=== PATIENT | male | born 1980 | race Caucasian/White ===

== ENCOUNTER → 2018-08-26 11:49 | Outpatient (CLI) | payer OTHER, SELFPAY ==
--- NOTE | 2018-08-26 | DI.CT.S_ITS ---
PROCEDURE: CT LUMBAR SPINE WO CON INDICATIONS: Low back pain radiating into right groin and down leg TECHNIQUE: Noncontrast 3 mm thick sections acquired from the T12 level to the sacrum. Sagittal and coronal reformats were constructed. For radiation dose reduction, the following was used: automated exposure control. COMPARISON: None. FINDINGS: Image quality: Excellent. Bones: There is normal bony alignment. No acute vertebral body compression fractures. No suspicious lytic or blastic bony lesions. No pars defects. T11-T12: Mild loss of disc height and vacuum phenomenon. There is posterior disc bulge. Mild bilateral facet arthropathy. The central canal is patent. No foraminal stenosis. T12-L1: Moderate loss of disc height and vacuum phenomenon. There is circumferential disc bulge and large anterior disc osteophyte complex. Mild bilateral facet arthropathy. The central canal is patent. No foraminal stenosis. L1-L2: Mild loss of disc height. There is mild posterior disc bulge. Mild bilateral facet arthropathy and hypertrophy of ligamentum flavum. The central canal is patent. No foraminal stenosis. L2-L3: Preserved disc height. There is mild posterior disc bulge. Mild bilateral facet arthropathy and hypertrophy of ligamentum flavum. The central canal is mildly narrowed. No foraminal stenosis. L3-L4: Vxaw-fl-butgliqn loss of disc height. There is diffuse posterior disc bulge and disc osteophyte complex. Mild bilateral facet arthropathy and hypertrophy of ligamentum flavum. The central canal is moderately narrowed. Mild to moderate bilateral foraminal stenosis. L4-L5: Mild loss of disc height. There is diffuse posterior disc bulge. Mild bilateral facet arthropathy and hypertrophy of ligamentum flavum. The central canal is moderately narrowed. Mild to moderate bilateral foraminal stenosis. L5-S1: Preserved disc height. There is mild posterior disc bulge. The central canal is patent. No foraminal stenosis. Soft tissues: No retroperitoneal masses or hematomas. Visualized aorta is normal in caliber. IMPRESSION: 1. Multilevel degenerative disc disease and facet arthropathy as described. 2. Moderate central canal stenosis at L3-L4 and L4-L5. 3. [id number] foraminal stenosis at several levels as described. Dictated by: Wayne Yen M.D. on 08/26/2018 at 17:13 Approved by: Wayne Yen M.D. on 08/27/2018 at 9:06
== END ==
PROVIDERS: Visit Provider Orthopaedic Surgery
DX: M54.5 Low back pain (principal); M51.16 Intervertebral disc disorders with radiculopathy, lumbar region; M51.17 Intervertebral disc disorders with radiculopathy, lumbosacral region; M47.26 Other spondylosis with radiculopathy, lumbar region; M48.061 Spinal stenosis, lumbar region without neurogenic claudication
CPT/HCPCS: 72131

== ENCOUNTER → 2022-03-15 08:17 | Outpatient (CLI) | payer OTHER, SELFPAY ==
--- NOTE | 2022-03-15 08:19 | DI.RAD.S_ITS ---
PROCEDURE: XR RIBS RT MIN 3V W CXR 1V INDICATIONS: Right-sided rib pain TECHNIQUE: 2 views of the right ribs were acquired, along with a single view chest. COMPARISON: None. FINDINGS: Surgical changes and devices: Right-sided dual-chamber pacemaker Bones and chest wall: No fractures or dislocations. No suspicious bony lesions. Overlying soft tissues appear unremarkable. Lungs and pleura: No pleural effusions or pneumothorax. Lungs appear clear. Mediastinum: Mediastinal contours appear normal. Heart size is normal. IMPRESSION: Pacemaker without rib fracture or pneumothorax Approved by: Lior Badillo M.D. on 03/15/2022 at 10:41
== END ==
PROVIDERS: Referring Provider Nurse Practitioner Family; Visit Provider Nurse Practitioner Family
DX: R07.81 Pleurodynia (principal); Z95.0 Presence of cardiac pacemaker
CPT/HCPCS: 71101

== ENCOUNTER → 2022-07-04 17:31 | Outpatient (CLI) | payer OTHER, SELFPAY ==
--- NOTE | 2022-07-04 17:33 | DI.RAD.S_ITS ---
PROCEDURE: XR CHEST 2V INDICATIONS: persistent cough, upcoming pacemaker procedure TECHNIQUE: 2 views of the chest were acquired. COMPARISON: None. FINDINGS: Surgical changes and devices: Left pacemaker with right atrial and right ventricular leads. Lungs and pleura: Lungs are clear. No pleural effusions or pneumothorax. Mediastinum: Mediastinal contours are normal. Heart size is normal. Bones and chest wall: No suspicious bony abnormalities. Prior right 7th rib fracture. Soft tissues appear unremarkable. IMPRESSION: Left pacemaker with right atrial and right ventricular leads. No acute cardiopulmonary abnormality. Dictated by: Mann Onofre M.D. on 07/04/2022 at 17:51 Approved by: Mann Onofre M.D. on 07/04/2022 at 17:52
== END ==
PROVIDERS: PCP Nurse Practitioner Family; Referring Provider Student in an Organized Health Care Education/Training Program; Visit Provider Student in an Organized Health Care Education/Training Program
DX: R05.3 Chronic cough (principal); Z95.0 Presence of cardiac pacemaker
CPT/HCPCS: 71046

== ENCOUNTER 2023-06-26 11:08 | Emergency (ER) | payer OTHER, SELFPAY ==
[2023-06-26] VITALS (8 sets, daily range): BP systolic 132–158; BP diastolic 72–83; PULSE 74–96; RESP 20; TEMP 37.3–38; O2SAT 97–100; BMI 25.7
--- NOTE | 2023-06-26 11:31 | DI.CT.S_ITS ---
PROCEDURE: CT THORACIC SPINE WO CON INDICATIONS: GLF, MIDLINE PAIN TECHNIQUE: Noncontrast 3 mm thick sections acquired through the region of interest in the thoracic spine. Sagittal and coronal reformats were then constructed. For radiation dose reduction, the following was used: automated exposure control. COMPARISON: [facility], CT, CT CERVICAL SPINE WO CON, 06/26/2023, 11:34. FINDINGS: Image quality: There is streak artifact seen through the upper abdomen. Bones: No acute vertebral body compression fractures. No suspicious sclerotic or lytic bony lesions. Central spinal canal is of normal overall caliber. Mild dextroconvex scoliotic curvature is seen. No focal AP alignment abnormality is seen. Soft tissues: No paravertebral masses or hematomas. Visualized posteromedial lungs appear clear. Left-sided pacer leads are seen. IMPRESSION: Negative for acute fracture. Dictated by: Balwinder Neri M.D. on 06/26/2023 at 11:11 Approved by: aBlwinder Neri M.D. on 06/26/2023 at 11:12
--- NOTE | 2023-06-26 11:31 | DI.CT.S_ITS ---
PROCEDURE: CT CERVICAL SPINE WO CON INDICATIONS: GLF, MIDLINE PAIN TECHNIQUE: Noncontrast 3 mm thick sections acquired from the skull base to the T4 level. Sagittal and coronal reformats were then constructed. For radiation dose reduction, the following was used: automated exposure control, adjustment of mA and/or kV according to patient size. COMPARISON: [facility], CT, CT THORACIC SPINE WO CON, 06/26/2023, 11:34. FINDINGS: Image quality: This examination is somewhat limited by quantum mottle artifact. Bones: No fractures or dislocations. Visualized superior ribs are intact. Levoconvex cervical thoracic scoliotic curvature is seen. Soft tissues: Prevertebral soft tissues are normal in thickness. No paravertebral hematomas. No apical pneumothoraces. Left-sided pacer leads are partially seen. IMPRESSION: No cervical spine fracture is seen. Dictated by: Balwinder Neri M.D. on 06/26/2023 at 11:12 Approved by: Balwinder Neri M.D. on 06/26/2023 at 11:13
--- NOTE | 2023-06-26 11:31 | ED.NECK ---
HPI - Neck Pain/Injury General Chief Complaint: Neck Pain/Injury Stated Complaint: TINGLING HANDS/FEET, HERNIATED DISC IN NECK Time Seen by Provider: 06/26/23 11:15 Mode of arrival: Wheelchair History of Present Illness HPI Narrative: 42-year-old male presents from home by private vehicle for neck and thoracic pain with severe musculoskeletal back pain. 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 For the last week he is noticed burning in his shoulders as well as a low-grade fever, however he states his temperature has never gone over 100.0. Daughter at home recently sick with viral illness. He has been taking Motrin and Tylenol for pain without significant relief. He reports weakness when he tries to push his arms forward, however he states that this is because the pain is so severe. Yesterday he fell down several steps and injured his upper back and neck worse. Today the pain became unbearable and he decided to present for evaluation. Reports tingling in his hands and feet that has since improved Related Data Previous Rx's Medication Instructions Recorded azithromycin 250 mg tablet See Rx Instructions PO .COMPLEX #6 07/04/22 tabs dexamethasone 4 mg tablet 8 mg PO DAILY 5 days #10 tabs 06/26/23 methocarbamol 750 mg tablet 750 mg PO TID #60 tabs 06/26/23 tramadol 50 mg tablet 50 mg PO Q8H PRN pain #10 tabs 06/26/23 Allergies Allergy/AdvReac Type Severity Reaction Status Date / Time acetaminophen [From Vicodin] Allergy Verified 06/26/23 11:11 hydrocodone [From Vicodin] Allergy Verified 06/26/23 11:11 Review of Systems Review of Systems Narrative: CONSTITUTIONAL- Denies: fever, chills, fatigue HEENT- Denies: sore throat, nosebleed, vision changes RESPIRATORY- Denies: shortness of breath, cough, wheezing CARDIAC- Denies: chest pain, edema, orthopnea GI- Denies: abdominal pain, nausea, vomiting, constipation, diarrhea - Denies: frequency, dysuria, hematuria, flank pain MSK-reports: Neck pain, back pain, shoulder pain Denies: extremity pain, extremity swelling SKIN- Denies: rash, itching, burn, swelling NEUROLOGICAL- Reports: tingling (hands/feet - resolved) Denies: headache, numbness, weakness, dizziness PSYCHIATRIC- Denies: anxiety, depression, suicidal ideation, homicidal ideation Patient History Social History Smoking Status: Never smoker Smoking Status: Never smoker alcohol intake frequency: holidays/special occasions only Substance Use Type: does not use Exam Initial Vital Signs Initial Vital Signs: Vital Signs Temperature 100.4 F H 06/26/23 11:11 Pulse Rate 81 06/26/23 11:11 Respiratory Rate 20 06/26/23 11:11 Blood Pressure 158/81 H 06/26/23 11:11 Pulse Oximetry 100 06/26/23 11:11 Oxygen Delivery Method Room Air 06/26/23 11:11 Const: Awake, alert, no acute distress, nontoxic appearing Eyes: PERRL, EOMI, conjunctiva normal ENT: Atraumatic, dentition normal, mucous membranes moist Cardiac: regular rate, regular rhythm RESP: unlabored, clear bilaterally, no wheezing GI: Atraumatic, soft, nontender, nondistended, no rebound, no guarding MSK: Atraumatic, 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 Back diffusely tender to palpation Skin: Warm, Dry, intact, no rashes Neuro: AO x3, CN II-XII grossly intact, moves all extremities Psych: affect normal, mood normal, not suicidal, not homicidal Course Course Course Narrative: Nontoxic appearing patient presenting for back and neck pain. Patient has chronic issues, however these acutely worsened after falling down several stairs. Will order labs, viral panel, CK. Medications for pain ordered. Orders Ordered: Discontinued Medications Dexamethasone (Dexamethasone 10 Mg/Ml Vial) 10 mg IV NOW ONE Stop: 06/26/23 11:30 Last Admin: 06/26/23 11:55 Dose: 10 mg Documented By: RB Acetaminophen (Ofirmev) 1,000 mg in 100 mls @ 400 mls/hr IV NOW ONE Stop: 06/26/23 11:43 Last Infusion: 06/26/23 12:28 Dose: 0 mls/hr Documented By: Admin: 06/26/23 11:55 Dose: 400 mls/hr Documented By: RB Ketorolac Tromethamine (Ketorolac 30 Mg/Ml Vial) 15 mg IV NOW ONE Stop: 06/26/23 11:30 Last Admin: 06/26/23 11:55 Dose: 15 mg Documented By: RB Methocarbamol (Methocarbamol 500 Mg Tablet) 1,000 mg PO NOW ONE Stop: 06/26/23 11:30 Last Admin: 06/26/23 11:55 Dose: 1,000 mg Documented By: CARLOS Reevaluation(s) Reevaluation #1: Labs reviewed, no acute abnormalities. CTs negative for acute findings. Patient reports pain improved with medications provided in the emergency department. 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 Patient was counseled to take several days of rest and to follow up with the primary care doctor. 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 ED return precautions discussed at bedside. Patient expressed understanding of the plan and is in agreement at this time. All questions answered at the time of discharge. Vital Signs Vital signs: Vital Signs - 8 hr 06/26/23 11:11 06/26/23 11:26 06/26/23 11:30 Temperature 100.4 F H Pulse Rate 81 84 94 H Respiratory Rate 20 Blood Pressure 158/81 H Pulse Oximetry 100 99 98 Oxygen Delivery Method Room Air 06/26/23 11:31 06/26/23 11:31 06/26/23 11:48 Temperature Pulse Rate 96 H Respiratory Rate Blood Pressure 147/72 H 134/75 Pulse Oximetry 97 Oxygen Delivery Method 06/26/23 11:48 06/26/23 12:00 06/26/23 12:00 Temperature Pulse Rate 77 77 Respiratory Rate Blood Pressure 132/83 Pulse Oximetry 99 98 Oxygen Delivery Method 06/26/23 12:30 06/26/23 12:30 06/26/23 12:43 Temperature 99.2 F Pulse Rate 74 Respiratory Rate Blood Pressure 132/75 Pulse Oximetry 98 Oxygen Delivery Method MDM - Neck Pain/Injury Lab Data 06/26/23 11:35 06/26/23 11:35 Labs: Lab Results 06/26/23 06/26/23 06/26/23 Range/Units 11:35 11:35 11:35 WBC 8.2 (4.5-11.0) X10^3/uL RBC 4.16 L (4.5-5.9) X10^6/uL Hgb 13.2 L (13.5-17.5) g/dL Hct 38.8 L (41-53) % MCV 93.1 (80-100) fL MCH 31.8 (26-34) PG MCHC 34.1 (30-36) % RDW 12.6 (11.6-14.8) % Plt Count 191 (150-400) X10^3/uL Neut % (Auto) 92.1 H (50-75) % Lymph % (Auto) 2.4 L (25-40) % [place] % (Auto) 5.3 (3-14) % Eos % (Auto) 0.0 L (2-4) % Baso % (Auto) 0.2 (0-2) % Neut # (Auto) 7500 H (5023-8740) /uL Lymph # (Auto) 200 L (1690-5915) /uL [place] # (Auto) 400 (0-900) /uL Eos # (Auto) 0 (0-450) /uL Baso # (Auto) 0 (0-100) /uL Sodium 132 L (137-145) mmol/L Potassium 3.9 (3.4-5.1) mmol/L Chloride 100 (98-107) mmol/L Carbon Dioxide 26 (22-32) mmol/L BUN 10 (9-20) mg/dL Creatinine 0.81 (0.66-1.25) mg/dL Estimated GFR > 60 (>60) mL/min BUN/Creatinine Ratio 12.3 (6-22) Glucose 121 H (70-100) mg/dL Calcium 9.5 (8.4-10.2) mg/dL Total Bilirubin 0.8 (0.2-1.3) mg/dL AST 36 (17-59) IU/L ALT 23 (<50) IU/L Alkaline Phosphatase 80 (38-126) U/L Total Creatine Kinase 153 (55-170) U/L Total Protein 7.6 (6.3-8.2) g/dL Albumin 4.3 (3.5-5.0) g/dL Globulin 3.3 (1.7-4.1) g/dL Albumin/Globulin Ratio 1.3 (1.0-2.8) SARS-CoV-2 (PCR) (Negative) Influenza A (RT-PCR) (NEGATIVE) Influenza B (RT-PCR) (NEGATIVE) RSV (PCR) (Negative) 06/26/23 Range/Units 11:35 WBC (4.5-11.0) X10^3/uL RBC (4.5-5.9) X10^6/uL Hgb (13.5-17.5) g/dL Hct (41-53) % MCV (80-100) fL MCH (26-34) PG MCHC (30-36) % RDW (11.6-14.8) % Plt Count (150-400) X10^3/uL Neut % (Auto) (50-75) % Lymph % (Auto) (25-40) % Med[place] % (Auto) (3-14) % Eos % (Auto) (2-4) % Baso % (Auto) (0-2) % Neut # (Auto) (7447-4230) /uL Lymph # (Auto) (1240-3598) /uL Med[place] # (Auto) (0-900) /uL Eos # (Auto) (0-450) /uL Baso # (Auto) (0-100) /uL Sodium (137-145) mmol/L Potassium (3.4-5.1) mmol/L Chloride (98-107) mmol/L Carbon Dioxide (22-32) mmol/L BUN (9-20) mg/dL Creatinine (0.66-1.25) mg/dL Estimated GFR (>60) mL/min BUN/Creatinine Ratio (6-22) Glucose (70-100) mg/dL Calcium (8.4-10.2) mg/dL Total Bilirubin (0.2-1.3) mg/dL AST (17-59) IU/L ALT (<50) IU/L Alkaline Phosphatase (38-126) U/L Total Creatine Kinase (55-170) U/L Total Protein (6.3-8.2) g/dL Albumin (3.5-5.0) g/dL Globulin (1.7-4.1) g/dL Albumin/Globulin Ratio (1.0-2.8) SARS-CoV-2 (PCR) Negative (Negative) Influenza A (RT-PCR) Flu a negative (NEGATIVE) Influenza B (RT-PCR) Flu b negative (NEGATIVE) RSV (PCR) Negative (Negative) Discharge Plan Departure Patient Disposition: Home Clinical Impression: Strain of neck muscle Instructions: Neck Sprain, DI for Muscle Strain Prescriptions: New methocarbamol 750 mg tablet 750 mg PO TID Qty: 60 0RF dexamethasone 4 mg tablet 8 mg PO DAILY 5 Days Qty: 10 0RF tramadol 50 mg tablet 50 mg PO Q8H PRN (Reason: pain) Qty: 10 0RF No Action azithromycin 250 mg tablet See Rx Instructions PO .COMPLEX Qty: 6 0RF Rx Instructions: take 500 mg today (day 1), then 250 mg for 4 days (days 2-5) PO Referrals: Dorcas Massey ARNP [Primary Care Provider] - Stand Alone Forms: Patient Portal/API
[2023-06-26 11:45] LABS: Add Manual Diff / Slide Review NO; Basophils Absolute Auto 0 /uL (0-100); Basophils Percent Auto 0.2 % (0-2); Eosinophils Absolute Auto 0 /uL (0-450); Hematocrit 38.8 % (41-53); Hemoglobin 13.2 g/dL (13.5-17.5); Lymphocytes Absolute Auto 200 /uL (1100-4500); Lymphocytes Percent Auto 2.4 % (25-40); Mean Corpuscular HGB Conc 34.1 % (30-36); Mean Corpuscular Hemoglobin 31.8 PG (26-34); Mean Corpuscular Volume 93.1 fL (80-100); Monocytes Absolute Auto 400 /uL (0-900); Monocytes Percent Auto 5.3 % (3-14); Neutrophils Absolute Auto 7500 /uL (1500-7000); Neutrophils Percent Auto 92.1 % (50-75); Platelet Count 191 X10^3/uL (150-400); Red Blood Cell Count 4.16 X10^6/uL (4.5-5.9); Red Cell Distribution Width 12.6 % (11.6-14.8); White Blood Cell Count 8.2 X10^3/uL (4.5-11.0)
[2023-06-26] MEDS: DEXAMETHASONE 10 MG/ML VIAL IV (11:55)
[2023-06-26] MEDS: methocarbamoL 500 MG TABLET 1000 MG PO (11:55)
[2023-06-26] MEDS: KETOROLAC 30 MG/ML VIAL 15 MG IV (11:55)
[2023-06-26] MEDS: ACETAMINOPHEN IV 1,000 MG/100 ML VIAL 400 MG IV (11:55)
[2023-06-26 11:57] LABS: Creatine Kinase 153 U/L (55-170)
[2023-06-26 11:59] LABS: Alanine Aminotransferase 23 IU/L (<50); Albumin 4.3 g/dL (3.5-5.0); Albumin Globulin Ratio 1.3 (1.0-2.8); Alkaline Phosphatase 80 U/L (38-126); Aspartate Aminotransferase 36 IU/L (17-59); BUN Creatinine Ratio 12.3 (6-22); Bilirubin Total 0.8 mg/dL (0.2-1.3); Blood Urea Nitrogen 10 mg/dL (9-20); Calcium 9.5 mg/dL (8.4-10.2); Carbon Dioxide 26 mmol/L (22-32); Chloride 100 mmol/L (98-107); Estimated Glomerular Filt Rate > 60 mL/min (>60); Globulin 3.3 g/dL (1.7-4.1); Glucose 121 mg/dL (70-100); HEMOLYSIS < 15 (0-50); Potassium 3.9 mmol/L (3.4-5.1); Sodium 132 mmol/L (137-145); Total Protein 7.6 g/dL (6.3-8.2)
--- NOTE | 2023-06-26 12:28 | PC.NURSE ---
Pt informed me that he recalls falling head first down 6 stairs approx [address] Prieto made aware
[2023-06-26 12:31] LABS: Influenza A - CEPHEID Flu A NEGATIVE (NEGATIVE); Influenza B - CEPHEID Flu B NEGATIVE (NEGATIVE); Respiratory Syncytial Virus Negative (Negative)
[2023-06-26 12:38] LABS: COVID-19 CEPHEID 4-PLEX PCR Negative (Negative)
== END 2023-06-26 13:30 | disposition home or self-care (01) ==
PROVIDERS: Emergency Provider Emergency Medicine; PCP Nurse Practitioner Family
DX: S16.1XXA Strain of muscle, fascia and tendon at neck level, initial encounter (principal); M54.6 Pain in thoracic spine; R50.9 Fever, unspecified; X58.XXXA Exposure to other specified factors, initial encounter; Z20.822 Contact with and (suspected) exposure to COVID-19; Y99.0 Civilian activity done for income or pay
CPT/HCPCS: 0241U; 36415; 72125; 72128; 80053; 82550; 85025; 96365; 96375; 99284; J0131; J1100; J1885

== ENCOUNTER 2023-06-29 00:33 | Emergency (ER) | payer OTHER, SELFPAY ==
[2023-06-29 00:42] VITALS: BP 133/83; PULSE 60; RESP 24; TEMP 37; O2SAT 100; BMI 25.7
[2023-06-29] MEDS: diazePAM 5 MG TABLET PO (02:26)
[2023-06-29] MEDS: KETOROLAC 30 MG/ML VIAL IM (02:26)
--- NOTE | 2023-06-29 03:07 | ED_ITS ---
HPI - Extremity Injury (Upper) General Chief Complaint: Extremity Injury, Upper Stated Complaint: LT Shoulder Pain was seen Thursday Time Seen by Provider: 06/29/23 01:26 Source: patient Mode of arrival: Ambulatory History of Present Illness HPI narrative: Patient 42-year-old male who presents with severe right shoulder pain and spasm. He reports had some burning in his shoulders last week. He has a physically demanding job he is had issues with his shoulders and rotator cuff for some time. Seen and evaluated here in the ED on 06/26/2023. The time he is reporting low-grade fever as well. He had workup including CT scan of the cervical spine and blood work ultimately discharged home with muscle spasm. He was given methocarbamol dexamethasone and tramadol. He reports that nothing is working he is having severe pain can not sleep at night. He previously had Vicodin for something else which usually makes him have a reaction an itch but he said he took it without reaction it did not help with his. He is currently pacing and appears quite uncomfortable Related Data Previous Rx's Medication Instructions Recorded azithromycin 250 mg tablet See Rx Instructions PO .COMPLEX #6 07/04/22 tabs dexamethasone 4 mg tablet 8 mg PO DAILY 5 days #10 tabs 06/26/23 methocarbamol 750 mg tablet 750 mg PO TID #60 tabs 06/26/23 tramadol 50 mg tablet 50 mg PO Q8H PRN pain #10 tabs 06/26/23 diazepam 5 mg tablet (Valium) 5 mg PO Q12HR PRN muscle spasm #10 06/29/23 tabs Allergies Allergy/AdvReac Type Severity Reaction Status Date / Time acetaminophen [From Vicodin] Allergy Verified 06/26/23 11:11 hydrocodone [From Vicodin] Allergy Verified 06/26/23 11:11 Review of Systems Review of Systems ROS Unobtainable: All systems reviewed & are unremarkable except as noted in HPI and below Patient History Social History Smoking Status: Never smoker Smoking Status: Never smoker alcohol intake frequency: holidays/special occasions only Substance Use Type: does not use Exam Initial Vital Signs Initial Vital Signs: Vital Signs Temperature 98.6 F 06/29/23 00:42 Pulse Rate 60 06/29/23 00:42 Respiratory Rate 24 06/29/23 00:42 Blood Pressure 133/83 10/02/23 00:42 Pulse Oximetry 100 06/29/23 00:42 Oxygen Delivery Method Room Air 06/29/23 00:42 GENERAL: Well-appearing, well-nourished and in no acute distress. CARDIOVASCULAR: peripheral pulses in tact, cap refill <2 sec RESPIRATORY: No respiratory distress, speaks in full sentences without difficulty EXTREMITIES: Normal range of motion, no clubbing or edema. Neurovascularly intact Left shoulder by scapula and rotator cuff pinpoint tenderness in 1 specific area not a muscle spasm. Able to abduct although limited flex extend. NEUROLOGICAL: Cranial nerves II through XII grossly intact. Normal gait and speech. SKIN: Warm, dry, no petechiae, no rashes or lesions. Course Orders Ordered: Discontinued Medications Diazepam (Diazepam 5 Mg Tablet) 5 mg PO NOW ONE Stop: 06/29/23 02:23 Last Admin: 06/29/23 02:26 Dose: 5 mg Documented By: TESS Ketorolac Tromethamine (Ketorolac 30 Mg/Ml Vial) 30 mg IM NOW ONE Stop: 06/29/23 02:23 Last Admin: 06/29/23 02:26 Dose: 30 mg Documented By: TESS Vital Signs Vital signs: Vital Signs - 8 hr 06/29/23 00:42 06/29/23 03:29 Temperature 98.6 F Pulse Rate 60 62 Respiratory Rate 24 16 Blood Pressure 133/83 127/84 Pulse Oximetry 100 99 Oxygen Delivery Method Room Air Room Air MDM - Extremity Injury (Upper) MDM Narrative Medical decision making narrative: Patient 48-year-old male presents today with left shoulder pain.? He has numbness tingling and spasm.? Decreased range of motion.? He did very well with Toradol and Valium pain completely resolved he was able to lay down and go to sleep for a little bit.? He had full workup recently chart has been reviewed.? At this time sitting need for any imaging.? I do recommend outpatient physical therapy and MRI.? Discharge Plan Departure Patient Disposition: Home Clinical Impression: Shoulder sprain Instructions: DI for Shoulder Sprain Activity Restrictions/Additional Instructions: *You have been diagnosed with shoulder sprain *What to do: Increase activity as tolerated he may require outpatient MRI if pain worsens. May also benefit from physical therapy *Continue to take medications as directed Ibuprofen 600 mg every 6 hours if needed for bvhr-ea-nslkjaco pain Valium 5 mg every 12 hours if needed for muscle spasm this does cause drowsiness Tylenol 1000 mg every 6 hours if needed for vbyh-yk-byejxeqk pain *Follow up with your primary care provider in 2-3 days or call [phone] *Return to ER if you should have increasing pain numbness tingling weakness or any new, worsening or concerning symptoms CONTROLLED SUBSTANCE DISCHARGE (Narcotoic/benzodiazepine/Flexeril/Phenergan) 1. You have been prescribed narcotic medications, it does have acet aminophen/Tylenol/paracetamol in it, DO NOT TAKE MORE THAN 4,00mg in 24 hours of Tylenol. TRAMADOL DOES NOT CONTAIN TYLENOL 2. Please understand that we cannot provide further refills of narcotics, benzodiazepines or controlled substances through the ED and her pain management will need to be through your provider. 3. While on these medications you cannot drive or operate heavy machinery. 4. You cannot sign legal documents or perform any duties such as this. 5. As long as you're taking opiate pain medications he should also be taking a stool softener such as Colace, Dulcolax, MiraLAX or prune juice, to help avoid constipation. Prescriptions: New diazepam [Valium] 5 mg tablet 5 mg PO Q12HR PRN (Reason: muscle spasm) Qty: 10 0RF No Action azithromycin 250 mg tablet See Rx Instructions PO .COMPLEX Qty: 6 0RF Rx Instructions: take 500 mg today (day 1), then 250 mg for 4 days (days 2-5) PO methocarbamol 750 mg tablet 750 mg PO TID Qty: 60 0RF dexamethasone 4 mg tablet 8 mg PO DAILY 5 Days Qty: 10 0RF tramadol 50 mg tablet 50 mg PO Q8H PRN (Reason: pain) Qty: 10 0RF Referrals: Dorcas Massey ARNP [Primary Care Provider] - Stand Alone Forms: Patient Portal/API
[2023-06-29 03:29] VITALS: BP 127/84; PULSE 62; RESP 16; O2SAT 99
== END 2023-06-29 03:30 | disposition home or self-care (01) ==
PROVIDERS: Emergency Provider Emergency Medicine; PCP Nurse Practitioner Family
DX: S43.401A Unspecified sprain of right shoulder joint, initial encounter (principal); X58.XXXA Exposure to other specified factors, initial encounter; Y99.0 Civilian activity done for income or pay
CPT/HCPCS: J1885

== ENCOUNTER 2023-06-29 14:20 | Emergency (ER) | payer OTHER, SELFPAY ==
[2023-06-29 14:23] VITALS: BP 164/90; PULSE 68; RESP 22; TEMP 36.8; O2SAT 100; BMI 25.7
--- NOTE | 2023-06-29 14:44 | DI.RAD.S_ITS ---
PROCEDURE: XR SHOULDER LT MIN 2V INDICATIONS: Pain after fall TECHNIQUE: 3 views of the shoulder were acquired. COMPARISON: None. FINDINGS: Bones: No fractures or dislocations. No suspicious bony lesions. Visualized ribs appear intact. Soft tissues: No suspicious soft tissue calcifications. Left chest wall pacemaker is partially visualized. IMPRESSION: No acute fracture or dislocation. Dictated by: Gabe Joy M.D. on 06/29/2023 at 16:15 Approved by: Gabe Joy M.D. on 06/29/2023 at 16:16
--- NOTE | 2023-06-29 14:45 | ED_ITS ---
HPI - Extremity Problem General Chief complaint: Extremity Problem,Nontraumatic Stated complaint: shoulder pain here 3x since thursday Time Seen by Provider: 06/29/23 14:39 Source: patient Mode of arrival: Ambulatory History of Present Illness HPI Narrative: Patient is a 42-year-old male who is here for evaluation of left shoulder pain. Originally had an injury approximately 1 week ago where he fell. He waited until last Thursday to come to the emergency department where he had a workup. Include a CT scan of his neck that was unremarkable. He came back again approximately 12 hours ago with increasing pain. He was given Valium and T oradol. According to the note this essentially resolved all of his symptoms. He was given a prescription for the Valium. He stated that he was unable to get the prescription picked up because it was not going to be available until after 1800 hours. He denies any new trauma. He states he does have tingling down into his hands. He states that his shoulder is swelling. Related Data Previous Rx's Medication Instructions Recorded azithromycin 250 mg tablet See Rx Instructions PO .COMPLEX #6 07/04/22 tabs dexamethasone 4 mg tablet 8 mg PO DAILY 5 days #10 tabs 06/26/23 methocarbamol 750 mg tablet 750 mg PO TID #60 tabs 06/26/23 tramadol 50 mg tablet 50 mg PO Q8H PRN pain #10 tabs 06/26/23 diazepam 5 mg tablet (Valium) 5 mg PO Q12HR PRN muscle spasm #10 06/29/23 tabs Allergies Allergy/AdvReac Type Severity Reaction Status Date / Time acetaminophen [From Vicodin] Allergy Verified 06/26/23 11:11 hydrocodone [From Vicodin] Allergy Verified 06/26/23 11:11 Review of Systems Constitutional Constitutional: Reports system reviewed and no additional complaints, except as documented Musculoskeletal Musculoskeletal: Reports system reviewed and no additional complaints, except as documented Integumentary/Breasts Skin/Breast: Reports system reviewed and no additional complaints, except as doc umented Neurologic Neurologic: Reports system reviewed and no additional complaints, except as documented Hematologic/Lymphatic On Anticoagulants: No Patient History Social History Smoking Status: Never smoker Smoking Status: Never smoker alcohol intake frequency: holidays/special occasions only Substance Use Type: does not use Exam Initial Vital Signs Initial Vital Signs: Vital Signs Temperature 98.2 F 06/29/23 14:23 Pulse Rate 68 06/29/23 14:23 Respiratory Rate 22 06/29/23 14:23 Blood Pressure 164/90 H 06/29/23 14:23 Pulse Oximetry 100 06/29/23 14:23 Oxygen Delivery Method Room Air 06/29/23 14:23 HENMT Head: normal to inspection and normocephalic Resp Effort & Inspection: normal respiratory effort Cardio Rate: regular rate Back/Spine/Pelvis Back: normal to inspection Skin General: no rashes or lesions noted Neuro General: patient alert, patient awake and patient oriented x3 Extrem Other: Patient has discomfort with palpation throughout the left shoulder. There was no swelling noted. He does have some pinpoint tenderness along the rhomboids on the left. His left elbow and left wrist unremarkable. Course Orders Ordered: ED Orders 06/29/23 14:44 XR shoulder LT min 2V Stat Discontinued Medications Diazepam (Diazepam 5 Mg Tablet) 5 mg PO NOW ONE Stop: 06/29/23 14:45 Last Admin: 06/29/23 14:48 Dose: 5 mg Documented By: SB Vital Signs Vital signs: Vital Signs - 8 hr 06/29/23 14:23 Temperature 98.2 F Pulse Rate 68 Respiratory Rate 22 Blood Pressure 164/90 H Pulse Oximetry 100 Oxygen Delivery Method Room Air MDM - Extremity (Nontraumatic) Imaging Data Extremity x-ray #1: Radiologist's Impression: PROCEDURE:? XR SHOULDER LT MIN 2V ? INDICATIONS:? Pain after fall ? TECHNIQUE:? 3 views of the shoulder were acquired.? ? COMPARISON:? None. ? FINDINGS:? ? Bones:? No fractures or dislocations.? No suspicious bony lesions.? Visualized ribs appear intact.? ? Soft tissues:? No suspicious soft tissue calcifications.? Left chest wall pacemaker is partially visualized. ? IMPRESSION:? No acute fracture or dislocation. [facility] Narrative Medical decision making narrative: X-ray shows no acute pathology. He is also had a CT scan during his 1st visit which was unremarkable. He denies chest pain. He does feel better after the Valium. He is an appointment with orthopedic surgery on this week. He has a prescription for Valium which does seem to improve his symptoms. No indication for admission to the hospital. Will discharge patient home with instructions to take the Valium. We also discussed other conservative measures such as lidocaine patches and heat and ice and massage. Discharge Plan Departure Patient Disposition: Home Clinical Impression: Left shoulder pain Activity Restrictions/Additional Instructions: You can take the Valium every 6-8 hours as needed for discomfort. I also recommend other conservative measures such as lidocaine patches which you can purchase [id number] and also Tylenol and ibuprofen. You can also try heat and light massage and light stretching. Keep your appointment that you have scheduled on morning with the orthopedic surgeons. Prescriptions: No Action azithromycin 250 mg tablet See Rx Instructions PO .COMPLEX Qty: 6 0RF Rx Instructions: take 500 mg today (day 1), then 250 mg for 4 days (days 2-5) PO diazepam [Valium] 5 mg tablet 5 mg PO Q12HR PRN (Reason: muscle spasm) Qty: 10 0RF methocarbamol 750 mg tablet 750 mg PO TID Qty: 60 0RF dexamethasone 4 mg tablet 8 mg PO DAILY 5 Days Qty: 10 0RF tramadol 50 mg tablet 50 mg PO Q8H PRN (Reason: pain) Qty: 10 0RF Referrals: Dorcas Massey ARNP [Primary Care Provider] - Stand Alone Forms: Patient Portal/API
[2023-06-29] MEDS: diazePAM 5 MG TABLET PO (14:48)
--- NOTE | 2023-06-29 14:55 | PC.NURSE ---
Pt fell down 7 stairs 2 weeks ago head first shielding with left shoulder, which he states took most of the fall. Pt has numbness, tingling to left fingers and left toes. Pt seen for this same concern recently.
[2023-06-29 16:50] VITALS: BP 116/71; PULSE 73; O2SAT 99
== END 2023-06-29 16:52 | disposition home or self-care (01) ==
PROVIDERS: Emergency Provider Emergency Medicine; PCP Nurse Practitioner Family
DX: M25.512 Pain in left shoulder (principal); S43.402A Unspecified sprain of left shoulder joint, initial encounter; X58.XXXA Exposure to other specified factors, initial encounter; Y99.0 Civilian activity done for income or pay
CPT/HCPCS: 73030; 96372; 99283; J1885

== ENCOUNTER → 2023-11-09 17:39 | Outpatient (ROUT) | payer OTHER, SELFPAY ==
[2023-11-09 18:09] LABS: Add Manual Diff / Slide Review NO; Basophils Absolute Auto 100 /uL (0-100); Basophils Percent Auto 1.1 % (0-2); Eosinophils Absolute Auto 100 /uL (0-450); Eosinophils Percent Auto 1.1 % (2-4); Hematocrit 38.4 % (41-53); Hemoglobin 12.4 g/dL (13.5-17.5); Lymphocytes Absolute Auto 1000 /uL (1100-4500); Lymphocytes Percent Auto 19.9 % (25-40); Mean Corpuscular HGB Conc 32.4 % (30-36); Mean Corpuscular Hemoglobin 28.3 PG (26-34); Mean Corpuscular Volume 87.3 fL (80-100); Monocytes Absolute Auto 500 /uL (0-900); Monocytes Percent Auto 8.6 % (3-14); Neutrophils Absolute Auto 3600 /uL (1500-7000); Neutrophils Percent Auto 69.3 % (50-75); Platelet Count 245 X10^3/uL (150-400); Red Blood Cell Count 4.39 X10^6/uL (4.5-5.9); Red Cell Distribution Width 16.2 % (11.6-14.8); White Blood Cell Count 5.2 X10^3/uL (4.5-11.0)
[2023-11-09 18:18] LABS: Alanine Aminotransferase 58 IU/L (<50); Creatine Kinase 87 U/L (55-170); Estimated Glomerular Filt Rate > 60 mL/min (>60)
[2023-11-09 18:35] LABS: Erythrocyte Sedimentation Rate 9 MM/HR (0-15)
== END ==
PROVIDERS: PCP Nurse Practitioner Family; Visit Provider Internal Medicine Infectious Disease
DX: M46.22 Osteomyelitis of vertebra, cervical region (principal)
CPT/HCPCS: 82550; 82565; 84460; 85025; 85651